=== PATIENT | male | born 1965 | race Hispanic/Latino ===

== ENCOUNTER 2020-01-08 18:25 | Emergency (ER) | payer BC, SELFPAY ==
[2020-01-08] MEDS ORDERED: Lidocaine 1% w/Epinephrine 1:100K 20 ML VIAL ONE (18:54)
[2020-01-08] MEDS ORDERED: Adacel (T-DAP) 0.5 ML SYRINGE ONE (19:29)
== END 2020-01-08 19:50 | disposition home or self-care (01) ==
LOC: ERS 18:25
DX: L02.31 Cutaneous abscess of buttock (principal); L03.317 Cellulitis of buttock
CPT/HCPCS: 10060; 90471; 90715

== ENCOUNTER 2020-12-09 11:00 | Emergency (ER) | payer BC ==
[2020-12-09] MEDS ORDERED: Lidocaine 1% w/Epinephrine 1:100K 20 ML VIAL ONE (12:01)
== END 2020-12-09 12:46 | disposition home or self-care (01) ==
LOC: ERS 11:00
DX: L02.31 Cutaneous abscess of buttock (principal)
CPT/HCPCS: 10060

== ENCOUNTER 2021-03-17 10:03 | Emergency (ER) | payer BC ==
[2021-03-17] MEDS ORDERED: Lidocaine 1% (PF) 30 ML VIAL ONE (10:50)
[2021-03-17] MEDS ORDERED: Ketorolac Tromethamine 30 MG/ML VIAL ONE (10:51)
[2021-03-17] MEDS ORDERED: Clindamycin/D5W 900 mg/50 ml Premix Bag ONE (11:15)
== END 2021-03-17 12:31 | disposition home or self-care (01) ==
LOC: ERS 10:03
DX: L02.01 Cutaneous abscess of face (principal); L03.211 Cellulitis of face
CPT/HCPCS: 10060; 96365; 96375; J1885; J2001; J3490